=== PATIENT | male | born 1950 | race Caucasian/White ===

== ENCOUNTER 2019-04-29 15:08 | Observation (INO) | payer MEDICARE, OTHER ==
[2019-04-29 15:51] LABS: Anisocytosis Slight; Basophils % (A) 1 %; Eosinophils # (A) 0.1 k/uL (0-0.7); Eosinophils % (A) 2 %; Lymphocytes # (A) 1.9 k/uL (1.0-4.8); Lymphocytes % (A) 35 %; MCH 33.7 pg (25.0-35.0); MCHC 33.9 g/dL (31.0-37.0); MCV 99.5 fL (80.0-100.0); Macrocytosis Slight; Mean Platelet Volume 8.9; Monocytes # (A) 0.3 k/uL (0-1.0); Monocytes % (A) 5 %; Neutrophils % (A) 56 %; Platelet Count 193 k/uL (150-450); RBC 1.96 m/uL (4.30-5.90); RDW 18.2 % (11.5-15.5); WBC 5.5 k/uL (3.8-10.6)
[2019-04-29 15:55] LABS: HCT 19.5 % (39.0-53.0); HGB 6.6 gm/dL (13.0-17.5)
[2019-04-29] MEDS ORDERED: NALOXONE 0.4 MG/ML 1 ML VIAL IV PRN (15:55)
[2019-04-29] MEDS ORDERED: ACETAMINOPHEN TAB 325 MG TAB PO PRN (15:55)
--- NOTE | 2019-04-29 16:03 | ED ---
General Adult HPI - General Chief complaint: GI Bleed Stated complaint: GI Bleed Time Seen by Provider: 04/29/19 15:12 Source: patient, RN/MD, EMS, RN notes reviewed, old records reviewed Mode of arrival: EMS Limitations: no limitations - History of Present Illness Initial comments: 69-year-old male presents as transfer from outside hospital. Patient was diagnosed with GI bleed in acute blood loss anemia. He was transfused 1 unit and transferred to this institution for GI consultation. Patient complaining of dark stools and lightheadedness. Patient is currently on aspirin as well as Effient, with recent stent placement in the LAD. Patient had 3 total stents placed in the LAD on 02/16/2019. Patient denying symptoms at the time my evaluation. No abdominal pain. No nausea vomiting. No chest pain or dyspnea. Patient is comfortable with no complaints. - Related Data Home Medications Medication Instructions Recorded Confirmed Aspirin [[place] Aspirin EC] 81 mg PO BID 04/29/19 04/29/19 Atorvastatin Calcium [Lipitor] 10 mg PO DAILY 04/29/19 04/29/19 Lisinopril 20 mg PO DAILY 04/29/19 04/29/19 Metoprolol Tartrate [Lopressor] 12.5 mg PO BID 04/29/19 04/29/19 Prasugrel [Effient] 10 mg PO DAILY 04/29/19 04/29/19 Tamsulosin HCl [Flomax] 0.4 mg PO DAILY 04/29/19 04/29/19 Allergies Allergy/AdvReac Type Severity Reaction Status Date / Time Penicillins Allergy Unknown Verified 04/29/19 15:14 Childhood Review of Systems ROS Statement: Those systems with pertinent positive or pertinent negative responses have been documented in the HPI. ROS Other: All systems not noted in ROS Statement are negative. Past Medical History Past Medical History: Hypertension History of Any Multi-Drug Resistant Organisms: None Reported Past Surgical History: Heart Catheterization With Stent Past Psychological History: No Psychological Hx Reported Smoking Status: Current every day smoker Past Alcohol Use History: None Reported Past Drug Use History: None Reported General Exam Limitations: no limitations General appearance: alert, in no apparent distress Head exam: Present: atraumatic, normocephalic Eye exam: Present: normal appearance, PERRL ENT exam: Present: normal exam Neck exam: Present: normal inspection. Absent: tenderness Respiratory exam: Present: normal lung sounds bilaterally. Absent: respiratory distress, wheezes Cardiovascular Exam: Present: regular rate, normal rhythm GI/Abdominal exam: Present: soft. Absent: distended, tenderness, guarding Extremities exam: Present: normal inspection, normal capillary refill. Absent: pedal edema Neurological exam: Present: alert, oriented X3, CN II-XII intact. Absent: motor sensory deficit Skin exam: Present: warm, pallor Course Vital Signs 04/29/19 15:14 Temperature 98 F Pulse Rate 69 Respiratory 18 Rate Blood Pressure 123/67 O2 Sat by Pulse 99 Oximetry EKG Findings - EKG Comments: EKG Findings:: EKG: Sinus rhythm with occasional PVC, rate is 71, NV interval 182, QRS duration 104, QTC [address] segment elevation. Medical Decision Making - Medical Decision Making 69-year-old male with GI bleed suspected upper and melanotic stool. Recent heart catheterization approximately 2 months ago with stent placement. On aspirin and Effient. No current chest pain. Hemoglobin is repeated after 1 unit up trending. Patient is transfused another unit. Discussed case with cardiology,and gastroenterology both aware of patient and the emergency department. I discussed case with the pulmonary garbage truck helper Dr. Florez regarding placement in either ICU or telemetry, both of us feel at this time patient is stable for monitored bed, no ICU. Case discussed with the admitting physician Dr. Ames. Diagnosis: GI bleed, acute blood loss anemia, recent cardiac stents. - Lab Data Result diagrams: 04/29/19 15:30 Lab Results 04/29/19 04/29/19 Range/Units 15:30 15:30 WBC 5.5 (3.8-10.6) k/uL RBC 1.96 L (4.30-5.90) m/uL Hgb 6.6 L* (13.0-17.5) gm/dL Hct 19.5 L* (39.0-53.0) % MCV 99.5 (80.0-100.0) fL MCH 33.7 (25.0-35.0) pg MCHC 33.9 (31.0-37.0) g/dL RDW 18.2 H (11.5-15.5) % Plt Count 193 (150-450) k/uL Neutrophils % 56 % Lymphocytes % 35 % Monocytes % 5 % Eosinophils % 2 % Basophils % 1 % Neutrophils # 3.0 (1.3-7.7) k/uL Lymphocytes # 1.9 (1.0-4.8) k/uL Monocytes # 0.3 (0-1.0) k/uL Eosinophils # 0.1 (0-0.7) k/uL Basophils # 0.0 (0-0.2) k/uL Anisocytosis Slight Macrocytosis Slight Blood Type Recheck No Previous Record Bld Type Recheck Status CABO Indicated Spec Expiration Date 05/02/2019 - 9566 Critical Care Time Critical Care Time: Yes Total Critical Care Time: 35 Disposition Clinical Impression: Melena, History of heart artery stent, Acute blood loss anemia Disposition: ADMITTED IP TO THIS [facility] Condition: Stable Is patient prescribed a controlled substance at d/c from ED?: No Referrals: Shawna Calderón MD [Primary Care Provider] - 1-2 days Decision to Admit Reason: Admit from EC Decision Date: 04/29/19 Decision Time: 16:15
[2019-04-29] MEDS: SODIUM CHLORIDE 0.9% 1,000 ML IV SCH (16:15)
[2019-04-29 20:43] LABS: Glucose,Whole Blood 133 mg/dL (75-99)
[2019-04-29] MEDS: METOPROLOL TARTRATE 12.5 MG TAB PO SCH (21:11)
[2019-04-29] MEDS: PANTOPRAZOLE 40 MG/10 ML VIAL IVP SCH (21:14)
[2019-04-29 21:40] LABS: Anisocytosis Slight; Basophils % (A) 1 %; Eosinophils # (A) 0.1 k/uL (0-0.7); Eosinophils % (A) 1 %; HCT 21.2 % (39.0-53.0); HGB 7.3 gm/dL (13.0-17.5); Lymphocytes # (A) 2.2 k/uL (1.0-4.8); Lymphocytes % (A) 37 %; MCH 33.5 pg (25.0-35.0); MCHC 34.6 g/dL (31.0-37.0); MCV 97.1 fL (80.0-100.0); Macrocytosis Slight; Mean Platelet Volume 9.6; Monocytes # (A) 0.3 k/uL (0-1.0); Monocytes % (A) 4 %; Neutrophils # (A) 3.2 k/uL (1.3-7.7); Neutrophils % (A) 55 %; Platelet Count 178 k/uL (150-450); RBC 2.18 m/uL (4.30-5.90); RDW 19.5 % (11.5-15.5); WBC 5.9 k/uL (3.8-10.6)
[2019-04-30 05:55] LABS: Glucose,Whole Blood 111 mg/dL (75-99)
[2019-04-30 06:35] LABS: ALT 20 U/L (4-49); AST 23 U/L (17-59); African American GFR (CKD) >90 (>60 ml/min/1.73 sqM); Albumin 3.2 g/dL (3.5-5.0); Alkaline Phosphatase 43 U/L (38-126); Anion Gap 3 mmol/L; Blood Urea Nitrogen 12 mg/dL (9-20); Calcium 8.4 mg/dL (8.4-10.2); Carbon Dioxide 22 mmol/L (22-30); Chloride 115 mmol/L (98-107); Glucose 98 mg/dL (74-99); Non-African American GFR(CKD) >90 (>60 ml/min/1.73 sqM); Potassium 4.3 mmol/L (3.5-5.1); Sodium 140 mmol/L (137-145); Total Bilirubin 1.3 mg/dL (0.2-1.3); Total Protein 5.6 g/dL (6.3-8.2)
[2019-04-30 06:44] LABS: Anisocytosis Slight; Basophils % (A) 1 %; Eosinophils # (A) 0.1 k/uL (0-0.7); Eosinophils % (A) 3 %; HCT 22.6 % (39.0-53.0); HGB 7.8 gm/dL (13.0-17.5); Lymphocytes # (A) 1.6 k/uL (1.0-4.8); Lymphocytes % (A) 32 %; MCH 33.6 pg (25.0-35.0); MCHC 34.5 g/dL (31.0-37.0); MCV 97.3 fL (80.0-100.0); Macrocytosis Slight; Mean Platelet Volume 8.4; Monocytes # (A) 0.3 k/uL (0-1.0); Monocytes % (A) 6 %; Neutrophils # (A) 2.9 k/uL (1.3-7.7); Neutrophils % (A) 57 %; Platelet Count 209 k/uL (150-450); RBC 2.32 m/uL (4.30-5.90); RDW 19.6 % (11.5-15.5)
[2019-04-30] MEDS: METOPROLOL TARTRATE 12.5 MG TAB PO SCH ×2 (08:44→19:49)
[2019-04-30] MEDS: TAMSULOSIN 0.4 MG CAP.ER.24H PO SCH (08:44)
[2019-04-30] MEDS: PANTOPRAZOLE 40 MG/10 ML VIAL IVP SCH ×2 (08:44→19:47)
[2019-04-30] MEDS ORDERED: ATORVASTATIN 10 MG TAB PO SCH (09:00)
--- NOTE | 2019-04-30 09:04 | P.CRDCN ---
History of Present Illness Consult date: 04/30/19 Requesting physician: Victor Hugo E Kwaku Reason for Consult (text): History of recent stents Chief complaint: Weakness, falls, black stools History of present illness: This is a pleasant 69-year-old gentleman with history of borderline diabetes, hypertension, hyperlipidemia, colitis, nicotine dependence, coronary artery disease, the patient states he recently had 3 stents placed at a hospital in [place], exact details not currently available. Over the past 3 days the patient has been feeling very weak and tired, occasionally dizzy, then he noticed to have black stools, for this reason he went to [facility] for further evaluation and treatment. Patient states he's also been having some heartburn. Laboratory data from [facility] showed a white blood cell count of 5.4, hemoglobin 5.8, hematocrit 18, platelet 236, sodium 142, potassium 4.0, chloride 113, CO2 20, BUN 23, creatinine 0.7. Troponin 0.05, total bilirubin 0.3, lipase 397, AST 23, ALT 22, alk phos 36. Patient was given a fluid bolus on arrival to [facility], given IV Protonix, he was crossmatc hed for 2 units of packed red blood cells and transfused with one unit. His EKG showed normal sinus rhythm with no acute changes. Blood pressure on arrival there 116/60 with a heart rate of 70 and afebrile patient was then transferred to [facility] for further treatment. His EKG on arrival here showed a sinus bradycardia with no acute changes. Blood pressure 120/50, heart rate in the 70s, 98% on room air. Labs on arrival here, white blood cell count 5.5, hemoglobin 6.6, platelet count 193. This morning's labs, white blood cell count 5.0, hemoglobin 7.8, platelet count 209. Sodium 140, potassium 4.3, BUN 12, creatinine 0.7. Patient's home medications included Lopressor 12-1/2 mg twice a day, aspirin 81 mg twice a day, Flomax 0.4 mg daily, Effient 10 mg daily, lisinopril 20 mg daily, and Lipitor 10 mg daily. Past Medical History Past Medical History: Hypertension, Prostate Disorder History of Any Multi-Drug Resistant Organisms: None Reported Past Surgical History: Heart Catheterization With Stent Additional Past Surgical History / Comment(s): history of 3 stents. aprox 2 months ago. Past Psychological History: No Psychological Hx Reported Smoking Status: Current every day smoker Past Alcohol Use History: None Reported Past Drug Use History: None Reported Medications and Allergies Home Medications Medication Instructions Recorded Confirmed Type Aspirin [[place] Aspirin EC] 81 mg PO BID 04/29/19 04/29/19 History Atorvastatin Calcium [Lipitor] 10 mg PO DAILY 04/29/19 04/29/19 History Lisinopril 20 mg PO DAILY 04/29/19 04/29/19 History Metoprolol Tartrate [Lopressor] 12.5 mg PO BID 04/29/19 04/29/19 History Prasugrel [Effient] 10 mg PO DAILY 04/29/19 04/29/19 History Tamsulosin HCl [Flomax] 0.4 mg PO DAILY 04/29/19 04/29/19 History Allergies Allergy/AdvReac Type Severity Reaction Status Date / Time Penicillins Allergy Unknown Verified 04/29/19 15:14 Childhood Physical Exam Vitals: Vital Signs Temp Pulse Pulse Resp BP BP Pulse Ox 04/30/19 08:10 98.1 F 72 18 119/55 98 04/30/19 04:00 98.6 F 62 18 109/66 95 04/30/19 00:00 98.4 F 66 18 112/69 96 04/29/19 20:00 98.2 F 75 18 116/64 94 L 04/29/19 18:47 98.6 F 78 14 146/78 100 04/29/19 18:45 98.3 F 78 14 146/78 04/29/19 17:36 97.9 F 75 118 H 148/81 100 04/29/19 17:12 98.2 F 75 18 116/64 94 L 04/29/19 17:06 98.3 F 73 18 136/83 99 04/29/19 16:56 97.9 F 69 18 131/69 100 04/29/19 15:14 98 F 69 18 123/67 99 Intake and Output 04/29/19 04/30/19 04/30/19 22:59 06:59 14:59 Intake Total 620 Balance 620 Intake: Blood Product 620 Rc Pheresis 2 As3 Unit 310 [id number] Other: # Voids 2 1 Weight 81.647 kg 78.7 kg PHYSICAL EXAMINATION: GENERAL: 69-year-old gentleman in no acute distress at the time of my examination HEENT: Head is atraumatic, normocephalic. Pupils equal, round. Sclera anicteric. Conjunctiva are clear. Mucous membranes of the mouth are moist. Neck is supple. There is no elevated jugular venous pressure. No carotid bruit is heard. HEART EXAMINATION: Heart S1, S2 normal. No murmur or gallop heard. CHEST EXAMINATION: Lungs are clear to auscultation and precussion. No chest wall tenderness is noted on palpation or with deep breathing. ABDOMEN: Soft, nontender. Bowel sounds are heard. No organomegaly noted. EXTREMITIES: 2+ peripheral pulses with no evidence of peripheral edema and no calf tenderness noted. NEUROLOGIC patient is awake, alert and oriented 3 . . Results 04/30/19 05:48 04/30/19 05:48 Cardiac Enzymes 04/30/19 Range/Units 05:48 AST 23 (17-59) U/L CBC 04/29/19 04/29/19 04/30/19 Range/Units 15:30 21:22 05:48 WBC 5.5 5.9 5.0 (3.8-10.6) k/uL RBC 1.96 L 2.18 L 2.32 L (4.30-5.90) m/uL Hgb 6.6 L* 7.3 L 7.8 L (13.0-17.5) gm/dL Hct 19.5 L* 21.2 L 22.6 L (39.0-53.0) % Plt Count 193 178 209 (150-450) k/uL Comprehensive Metabolic Panel 04/30/19 Range/Units 05:48 Sodium 140 (137-145) mmol/L Potassium 4.3 (3.5-5.1) mmol/L Chloride 115 H (98-107) mmol/L Carbon Dioxide 22 (22-30) mmol/L BUN 12 (9-20) mg/dL Creatinine 0.73 (0.66-1.25) mg/dL Glucose 98 (74-99) mg/dL Calcium 8.4 (8.4-10.2) mg/dL AST 23 (17-59) U/L ALT 20 (4-49) U/L Alkaline Phosphatase 43 (38-126) U/L Total Protein 5.6 L (6.3-8.2) g/dL Albumin 3.2 L (3.5-5.0) g/dL Current Medications Generic Name Dose Route Start Last Admin Trade Name Freq PRN Reason Stop Dose Admin Acetaminophen 650 mg 04/29/19 15:55 Tylenol Tab PO Q4HR PRN Fever and/or Mild Pain Atorvastatin Calcium 10 mg 04/30/19 09:00 04/30/19 08:44 Lipitor PO 10 mg DAILY PRASANNA Administration Sodium Chloride 1,000 mls @ 50 mls/hr 04/29/19 15:30 04/29/19 16:15 Saline 0.9% IV 50 mls/hr .Q20H PRASANNA Administration Metoprolol Tartrate 12.5 mg 04/29/19 21:00 04/30/19 08:44 Lopressor PO 12.5 mg BID PRASANNA Administration Naloxone HCl 0.2 mg 04/29/19 15:55 Narcan IV Q2M PRN Opioid Reversal Pantoprazole Sodium 40 mg 04/29/19 21:00 04/30/19 08:44 Protonix IVP 40 mg BID PRASANNA Administration Tamsulosin HCl 0.4 mg 04/30/19 09:00 04/30/19 08:44 Flomax PO 0.4 mg DAILY PRASANNA Administration Intake and Output 04/29/19 04/30/19 04/30/19 22:59 06:59 14:59 Intake Total 620 Balance 620 Intake: Blood Product 620 Rc Pheresis 2 As3 Unit 310 [id number] Other: # Voids 2 1 Weight 81.647 kg 78.7 kg 04/30/19 05:48 04/30/19 05:48 EKG Interpretations (text) EKG shows a sinus bradycardia with no acute changes. Assessment and Plan Plan: Assessment and plan #1 GI bleed, patient was having black stools, hemoglobin at [facility] 5.8. On Effient 10 mg daily and baby aspirin twice a day #2 coronary artery disease with recent stenting, patient had 3 stents placed, in [place], we will obtain records, this was performed in February #3 hypertension #4 borderline diabetes #5 hyperlipidemia #6 nicotine dependence Plan We will obtain records from [place] on the patient's most recent cardiac procedure, we will also obtain an echocardiogram with Doppler study. We will resume the patient's Effient, as well as a baby aspirin daily, increase Lipitor to 80 mg daily, continue metoprolol. Await GI evaluation and recommendation. Further recommendations to follow. DNP note has been reviewed, I agree with a documented findings and plan of care. Patient was seen and examined.
[2019-04-30] MEDS ORDERED: PRASUGREL 10 MG TAB PO SCH (09:15)
[2019-04-30] MEDS ORDERED: ASPIRIN 81 MG PO SCH (09:15)
[2019-04-30 11:57] LABS: Glucose,Whole Blood 108 mg/dL (75-99)
--- NOTE | 2019-04-30 13:23 | ECHOF ---
Referral Reason:anemia MEASUREMENTS -------- HEIGHT: 177.8 cm WEIGHT: 78.5 kg BP: 119/55 RVIDd: 2.3 cm (< 3.3) IVSd: 1.3 cm (0.6 - 1.1) LVIDd: 4.5 cm (3.9 - 5.3) LVPWd: 1.2 cm (0.6 - 1.1) IVSs: 1.7 cm LVIDs: 3.0 cm LVPWs: 2.2 cm LA Diam: 3.9 cm (2.7 - 3.8) LAESV Index (A-L): 40.22 ml/m Ao Diam: 3.4 cm (2.0 - 3.7) AV Cusp: 2.2 cm (1.5 - 2.6) MV EXCURSION: 17.007 mm (> 18.000) MV EF SLOPE: 100 mm/s (70 - 150) EPSS: 0.7 cm MV E Gurinder: 1.07 m/s MV DecT: 159 ms MV A Gurinder: 0.67 m/s MV E/A Ratio: 1.58 RAP: 5.00 mmHg RVSP: 36.65 mmHg FINDINGS -------- Sinus rhythm. This was a technically adequate study. The left ventricular size is normal. There is mild concentric left ventricular hypertrophy. Overa ll left ventricular systolic function is low-normal with, an EF between 50 - 55 %. Apical inferior LV wall motion is hypokinetic. Apical septum LV wall motion is hypokinetic. The right ventricle is normal in size. LA is severely dilated >40 ml/m2 The right atrium is normal in size. Interatrial and interventricular septum intact. The aortic valve is trileaflet and appears structurally normal. Trace amount of aortic regurgitatio n. There is trace to mild mitral regurgitation. Mild tricuspid regurgitation present. There is mild pulmonary hypertension. The right ventricular systolic pressure, as measured by Doppler, is 36.65mmHg. Trace/mild (physiologic) pulmonic regurgitation. The aortic root size is normal. IVC Not well visulized. There is no pericardial effusion. CONCLUSIONS -------- 1. Sinus rhythm. 2. This was a technically adequate study. 3. The left ventricular size is normal. 4. There is mild concentric left ventricular hypertrophy. 5. Overall left ventricular systolic function is low-normal with, an EF between 50 - 55 %. 6. Apical inferior LV wall motion is hypokinetic. 7. Apical septum LV wall motion is hypokinetic. 8. The right ventricle is normal in size. 9. LA is severely dilated >40 ml/m2 10. The right atrium is normal in size. 11. Interatrial and interventricular septum intact. 12. The aortic valve is trileaflet and appears structurally normal. 13. Trace amount of aortic regurgitation. 14. There is trace to mild mitral regurgitation. 15. Mild tricuspid regurgitation present. 16. There is mild pulmonary hypertension. 17. The right ventricular systolic pressure, as measured by Doppler, is 36.65mmHg. 18. Trace/mild (physiologic) pulmonic regurgitation. 19. The aortic root size is normal. 20. IVC Not well visulized. 21. There is no pericardial effusion. VASCULAR TECHNICIAN: Stella Ireland RDCS
--- NOTE | 2019-04-30 15:46 | P.HPIM ---
History of Present Illness H&P Date: 04/30/19 Chief Complaint: Black stools/weakness 69-year-old gentleman with history of borderline diabetes, hypertension, hyperlipidemia, colitis, nicotine dependence, coronary artery disease, the patient states he recently had 3 stents placed at a hospital in [place], exact details not currently available. Over the past 3 days the patient has been feeling very weak and tired, occasionally dizzy, then he noticed to have black stools, for this reason he went to [facility] for further evaluation and treatment. Patient states he's also been having some heartburn. Laboratory data from [facility] showed a white blood cell count of 5.4, hemoglobin 5.8, hematocrit 18, platelet 236, sodium 142, potassium 4.0, chloride 113, CO2 20, BUN 23, creatinine 0.7. Troponin 0.05, total bilirubin 0.3, lipase 397, AST 23, ALT 22, alk phos 36. Patient was given a fluid bolus on arrival to [facility], given IV Protonix, he was crossmatched for 2 units of packed red blood cells and transfused with one unit. His EKG showed normal sinus rhythm with no acute changes. Patient was transferred to our facility for higher level of care; Blood pressure on arrival there 116/60 with a heart rate of 70 and afebrile. His EKG on arrival here showed a sinus bradycardia with no acute changes. Blood pressure 120/50, heart rate in the 70s, 98% on room air. Labs on arrival here, white blood cell count 5.5, hemoglobin 6.6, platelet count 193. This morning's labs, white blood cell count 5.0, hemoglobin 7.8, platelet count 209. Sodium 140, potassium 4.3, BUN 12, creatinine 0.7. Patient's home medications included Lopressor 12-1/2 mg twice a day, aspirin 81 mg twice a day, Flomax 0.4 mg daily, Effient 10 mg daily, lisinopril 20 mg daily, and Lipitor 10 mg daily. Review of Systems REVIEW OF SYSTEMS: CONSTITUTIONAL: No fever, no malaise, no fatigue. HEENT: No recent visual problems or hearing problems. Denied any sore throat. CARDIOVASCULAR: No chest pain, orthopnea, PND, no palpitations, no syncope. PULMONARY: No shortness of breath, no cough, no hemoptysis. GASTROINTESTINAL: Black tarry stools. NEUROLOGICAL: No headaches, no weakness, no numbness. HEMATOLOGICAL: Denies any bleeding or petechiae. GENITOURINARY: Denies any burning micturition, frequency, or urgency. MUSCULOSKELETAL/RHEUMATOLOGICAL: Denies any joint pain, swelling, or any muscle pain. ENDOCRINE: Denies any polyuria or polydipsia. The rest of the 14-point review of systems is negative. Past Medical History Past Medical History: Hypertension, Prostate Disorder History of Any Multi-Drug Resistant Organisms: None Reported Past Surgical History: Heart Catheterization With Stent Additional Past Surgical History / Comment(s): history of 3 stents. aprox 2 months ago. Past Psychological History: No Psychological Hx Reported Smoking Status: Current every day smoker Past Alcohol Use History: None Reported Past Drug Use History: None Reported Medications and Allergies Home Medications Medication Instructions Recorded Confirmed Type Aspirin [[place] Aspirin EC] 81 mg PO BID 04/29/19 04/29/19 History Atorvastatin Calcium [Lipitor] 10 mg PO DAILY 04/29/19 04/29/19 History Lisinopril 20 mg PO DAILY 04/29/19 04/29/19 History Metoprolol Tartrate [Lopressor] 12.5 mg PO BID 04/29/19 04/29/19 History Prasugrel [Effient] 10 mg PO DAILY 04/29/19 04/29/19 History Tamsulosin HCl [Flomax] 0.4 mg PO DAILY 04/29/19 04/29/19 History Allergies Allergy/AdvReac Type Severity Reaction Status Date / Time Penicillins Allergy Unknown Verified 04/29/19 15:14 Childhood Physical Exam Vitals: Vital Signs Temp Pulse Pulse Resp BP BP Pulse Ox 04/30/19 08:10 98.1 F 72 18 119/55 98 04/30/19 04:00 98.6 F 62 18 109/66 95 04/30/19 00:00 98.4 F 66 18 112/69 96 04/29/19 20:00 98.2 F 75 18 116/64 94 L 04/29/19 18:47 98.6 F 78 14 146/78 100 04/29/19 18:45 98.3 F 78 14 146/78 04/29/19 17:36 97.9 F 75 118 H 148/81 100 04/29/19 17:12 98.2 F 75 18 116/64 94 L 04/29/19 17:06 98.3 F 73 18 136/83 99 04/29/19 16:56 97.9 F 69 18 131/69 100 04/29/19 15:14 98 F 69 18 123/67 99 Intake and Output 04/29/19 04/30/19 04/30/19 22:59 06:59 14:59 Intake Total 620 Balance 620 Intake: Blood Product 620 Rc Pheresis 2 As3 Unit 310 [id number] Other: # Voids 2 1 Weight 81.647 kg 78.7 kg PHYSICAL EXAMINATION: GENERAL: The patient is alert and oriented x3, not in any acute distress. Well developed, well nourished. HEENT: Pupils are round and equally reacting to light. EOMI. No scleral icterus. No conjunctival pallor. Normocephalic, atraumatic. No pharyngeal erythema. No thyromegaly. CARDIOVASCULAR: S1 and S2 present. No murmurs, rubs, or gallops. PULMONARY: Chest is clear to auscultation, no wheezing or crackles. ABDOMEN: Soft, nontender, nondistended, normoactive bowel sounds. No palpable organomegaly. MUSCULOSKELETAL: No joint swelling or deformity. EXTREMITIES: No cyanosis, clubbing, or pedal edema. NEUROLOGICAL: Gross neurological examination did not reveal any focal deficits. SKIN: No rashes. Results CBC & Chem 7: 04/30/19 05:48 04/30/19 05:48 Labs: Abnormal Lab Results - Last 24 Hours (Table) 04/29/19 04/29/19 04/29/19 Range/Units 15:30 15:30 20:42 RBC 1.96 L (4.30-5.90) m/uL Hgb 6.6 L* (13.0-17.5) gm/dL Hct 19.5 L* (39.0-53.0) % RDW 18.2 H (11.5-15.5) % Chloride (98-107) mmol/L POC Glucose (mg/dL) 133 H (75-99) mg/dL Total Protein (6.3-8.2) g/dL Albumin (3.5-5.0) g/dL Crossmatch See Detail 04/29/19 04/30/19 04/30/19 Range/Units 21:22 05:48 05:48 RBC 2.18 L 2.32 L (4.30-5.90) m/uL Hgb 7.3 L 7.8 L (13.0-17.5) gm/dL Hct 21.2 L 22.6 L (39.0-53.0) % RDW 19.5 H 19.6 H (11.5-15.5) % Chloride 115 H (98-107) mmol/L POC Glucose (mg/dL) (75-99) mg/dL Total Protein 5.6 L (6.3-8.2) g/dL Albumin 3.2 L (3.5-5.0) g/dL Crossmatch 04/30/19 04/30/19 Range/Units 05:54 11:54 RBC (4.30-5.90) m/uL Hgb (13.0-17.5) gm/dL Hct (39.0-53.0) % RDW (11.5-15.5) % Chloride (98-107) mmol/L POC Glucose (mg/dL) 111 H 108 H (75-99) mg/dL Total Protein (6.3-8.2) g/dL Albumin (3.5-5.0) g/dL Crossmatch Thrombosis Risk Factor Assmnt - Choose All That Apply Other Risk Factors: Yes Each Risk Factor Represents 2 Points: Age 61-74 years Other congenital or acquired thrombophilia - If yes, enter type in comment: No Thrombosis Risk Factor Assessment Total Risk Factor Score: 2 Thrombosis Risk Factor Assessment Level: Low Risk Assessment and Plan Assessment: 1. GI bleed; monitor H&H closely; IV Protonix 40 mg daily; IV fluids; monitor CBC closely; GI to see patient 2. Acute blood loss anemia; we will monitor H&H closely; type crossmatch and transfuse if hemoglobin is less than 7.0; await GI recommendations; cardiology recommended to continue with Effient 10 mg take and baby aspirin twice a day 3. CAD with recent stenting 3; cardiology is following and recommending records from Hospital in [place] prior to any further evaluation; cardiology recommending to continue with Effient and aspirin 4. Hypertension; stable on home dose of metoprolol 12.5 mg twice a day 5. Borderline diabetes mellitus; monitor Accu-Cheks every before meals and at bedtime with insulin sliding scale; 6. Hyperlipidemia; Lipitor 10 mg by mouth daily at bedtime 7. DVT prophylaxis; systemic anticoagulation CODE STATUS; full code
[2019-04-30 17:21] LABS: Glucose,Whole Blood 107 mg/dL (75-99)
[2019-04-30] MEDS: SODIUM CHLORIDE 0.9% 1,000 ML IV SCH ×2 (17:37→17:41)
--- NOTE | 2019-04-30 18:55 | CONS ---
CONSULTATION DATE OF DICTATION: 04/30/2019 REASON FOR CONSULTATION: Acute GI bleed. HISTORY OF PRESENT ILLNESS: The patient is a 69-year-old pleasant white male who was admitted to the hospital because of black tarry stools for the last 2 days' duration. He has also been feeling weak, tired, occasional dizziness for the last 3 days' duration. He went to [facility], where he was noted to have a hemoglobin of 5.8 g/dL and slightly elevated BUN at 23. He was given a unit of blood transfusion and was transferred to [facility] for further evaluation. Since being over here, his hemoglobin dropped to 6.5, requiring another unit of blood transfusion. He is feeling much better today. He denies any abdominal pain. No nausea, vomiting. He did have some cramping lower abdominal pain yesterday. He has a prior history of peptic ulcer disease approximately 20 years ago. He denies any recent NSAID use. PAST MEDICAL HISTORY: His past medical history is significant for hypertension, diabetes mellitus, hyperlipidemia, coronary artery disease, status post stent placement in [place] in February of this year and has been on Effient. MEDICATIONS AT HOME: 1. Aspirin. 2. Lipitor. 3. Lisinopril. 4. Metoprolol. 5. Effient. 6. Tamsulosin. ALLERGIES: PENICILLIN. SOCIAL HISTORY: Chronic smoker. No alcohol use. FAMILY HISTORY: Unremarkable. REVIEW OF SYSTEMS: CARDIOPULMONARY: No chest pain or shortness of breath. GENITOURINARY: No dysuria or hematuria. MUSCULOSKELETAL: Unremarkable. SKIN: Unremarkable. ENDOCRINE: Unremarkable. PSYCHIATRIC: Unremarkable. NEUROLOGY: Unremarkable. ENT/VISION: Unremarkable. CONSTITUTIONAL: No recent weight loss. No fever, chills, night sweats. PHYSICAL EXAMINATION: Blood pressure is 123/58, pulse rate 53, temperature 98. HEENT examination unremarkable. Conjunctivae pale. Sclerae anicteric. Oral cavity no lesions. NECK: No JVD or lymph node enlargement. CHEST: Clear to auscultation. HEART: Regular rate and rhythm. ABDOMEN: Soft. Non-tender, non-distended. Bowel sounds are positive. No organomegaly. EXTREMITIES: No pedal edema. SKIN: No rashes. NEUROLOGIC: Alert and oriented x3. No focal deficits. LABS: WBC 5, hemoglobin 6.6, platelets normal. After 2 units, hemoglobin is 7.8. BUN and creatinine today are normal. Basic metabolic panel is within normal limits. IMPRESSION: 1. Black tarry stools of 3 days' duration in this patient who presented with severe symptomatic anemia and a hemoglobin of 5.5 requiring 2 units of blood transfusion. No prior history of peptic ulcer disease or recent NSAID use. He underwent cardiac catheterization with stent placement 2 months ago in [place] and since then has been on aspirin and Effient, which is currently on hold. Most likely we are dealing with an upper GI source of bleeding. 2. Coronary artery disease, status post stent placement 2 months ago, on aspirin and Effient, which is currently on hold. 3. History of diabetes mellitus and hypertension. RECOMMENDATIONS: 1. Clear liquid diet. 2. IV Protonix 40 mg q.12 hours. 3. CBC on a daily basis. 4. Will proceed with an upper endoscopy tomorrow. Discussed with the patient risks, benefits and complications of the procedure, and he is agreeable to it. Thank you for this consultation. MIL / JUJUN: [id number] /
[2019-04-30 21:04] LABS: Glucose,Whole Blood 100 mg/dL (75-99)
[2019-05-01 06:18] LABS: Anisocytosis Slight; Basophils # (A) 0.1 k/uL (0-0.2); Basophils % (A) 1 %; Eosinophils # (A) 0.1 k/uL (0-0.7); Eosinophils % (A) 2 %; HCT 25.8 % (39.0-53.0); HGB 8.5 gm/dL (13.0-17.5); Lymphocytes # (A) 1.7 k/uL (1.0-4.8); Lymphocytes % (A) 30 %; MCH 32.6 pg (25.0-35.0); MCHC 32.8 g/dL (31.0-37.0); MCV 99.3 fL (80.0-100.0); Macrocytosis Slight; Mean Platelet Volume 8.4; Monocytes # (A) 0.4 k/uL (0-1.0); Monocytes % (A) 7 %; Neutrophils # (A) 3.2 k/uL (1.3-7.7); Neutrophils % (A) 58 %; Platelet Count 221 k/uL (150-450); RDW 19.1 % (11.5-15.5); WBC 5.5 k/uL (3.8-10.6)
[2019-05-01 06:23] LABS: Glucose,Whole Blood 112 mg/dL (75-99)
[2019-05-01 06:33] LABS: African American GFR (CKD) >90 (>60 ml/min/1.73 sqM); Anion Gap 7 mmol/L; Blood Urea Nitrogen 9 mg/dL (9-20); Calcium 8.3 mg/dL (8.4-10.2); Carbon Dioxide 21 mmol/L (22-30); Chloride 110 mmol/L (98-107); Glucose 92 mg/dL (74-99); Non-African American GFR(CKD) >90 (>60 ml/min/1.73 sqM); Potassium 4.7 mmol/L (3.5-5.1); Sodium 138 mmol/L (137-145)
[2019-05-01] MEDS ORDERED: PROPOFOL 10 MG/ML 20 ML VIAL IV ONE (06:52)
[2019-05-01] MEDS ORDERED: LIDOCAINE 1% INJ 10MG/ML (20 ML MDV) ONE (06:52)
[2019-05-01] MEDS ORDERED: IV FLUID CONTINUATION 1,000 ML IV ONE (07:06)
--- NOTE | 2019-05-01 07:10 | P.PCN ---
Date of Procedure: 05/01/19 Procedure(s) Performed: BRIEF HISTORY: Patient is a 69-year-old, pleasant, White male, admitted hospital with severe symptomatic anemia and hemoglobin of 5.6 g/dL. he received 2 units of transfusion so far. He was having some Black tarry stools for the last 3 days' duration. He is hence scheduled for an upper endoscopy to evaluate further. Hemoglobin today is 8.5 g/dL.. PROCEDURE PERFORMED: Esophagogastroduodenoscopywith biopsy. PREOPERATIVE DIAGNOSIS: Melena of 2 days' duration and severe symptomatic anemia. IV sedation per anesthesia. PROCEDURE: After informed consent was obtained, the patient was brought into the endoscopy unit. IV sedation was administered by Anesthesia under continuous monitoring. Initially the Olympus GIF-140 video endoscope was inserted into the mouth. Esophagus intubated without any difficulty. It was gradually advanced into the stomach and duodenum and carefully examined. The bulb had moderate duodenitisand the second part of the duodenum appeared normal. The scope at this time was withdrawn to the stomach, adequately insufflated with air, and upon careful examination, mucosa of the antrum,had multiple scattered erosions and biopsies were done from this area. The body, cardia and the fundus appeared normal. The scope was then withdrawn into the esophagus. The GE junction was located at 39 cm from the incisors. The esophagus appeared normal. There were no erosions or ulcerations seen and the patient tolerated the procedure well. IMPRESSION: 1. Antral erosive gastritis. 2. Duodenitis. RECOMMENDATIONS: The findings of this examination were discussed with the patient. At this time will continue with Protonix 40 mg daily. Start him on clear liquid diet. I will discuss with him about colonoscopy tomorrow or an outpatient basis to evaluate the anemia.
[2019-05-01] MEDS: TAMSULOSIN 0.4 MG CAP.ER.24H PO SCH (09:16)
[2019-05-01] MEDS: PANTOPRAZOLE 40 MG/10 ML VIAL IVP SCH ×2 (09:16→20:13)
[2019-05-01] MEDS: ATORVASTATIN 80 MG TAB PO SCH (09:16)
[2019-05-01] MEDS: METOPROLOL TARTRATE 12.5 MG TAB PO SCH ×2 (09:16→20:11)
[2019-05-01 12:18] LABS: Glucose,Whole Blood 106 mg/dL (75-99)
--- NOTE | 2019-05-01 12:30 | P.PN ---
Subjective Progress Note Date: 05/01/19 This is a pleasant 69-year-old gentleman with history of borderline diabetes, hypertension, hyperlipidemia, colitis, nicotine dependence, coronary artery disease, the patient states he recently had 3 stents placed at a hospital in [place], exact details not currently available. Over the past 3 days the patient has been feeling very weak and tired, occasionally dizzy, then he noticed to have black stools, for this reason he went to [facility] for further evaluation and treatment. Patient states he's also been having some heartburn. Laboratory data from [facility] showed a white blood cell count of 5.4, hemoglobin 5.8, hematocrit 18, platelet 236, sodium 142, potassium 4.0, chloride 113, CO2 20, BUN 23, creatinine 0.7. Troponin 0.05, total bilirubin 0.3, lipase 397, AST 23, ALT 22, alk phos 36. Patient was given a fluid bolus on arrival to [facility], given IV Protonix, he was crossmatched for 2 units of packed red blood cells and transfused with one unit. His EKG showed normal sinus rhythm with no acute changes. Blood pressure on arrival there 116/60 with a heart rate of 70 and afebrile patient was then transferred to [facility] for further treatment. His EKG on arrival here showed a sinus bradycardia with no acute changes. Blood pressure 120/50, heart rate in the 70s, 98% on room air. Labs on arrival here, white blood cell count 5.5, hemoglobin 6.6, platelet count 193. This morning's labs, white blood cell count 5.0, hemoglobin 7.8, platelet count 209. Sodium 140, potassium 4.3, BUN 12, creatinine 0.7. Patient's home medications included Lopressor 12-1/2 mg twice a day, aspirin 81 mg twice a day, Flomax 0.4 mg daily, Effient 10 mg daily, lisinopril 20 mg daily, and Lipitor 10 mg daily. 05/01/2019 Patient seen and examined this morning, underwent an EGD today which revealed some antral erosive gastritis and duodenitis. Anticipating tomorrow that the patient will undergo a colonoscopy. Hemodynamically he is stable. Denies any chest discomfort and his breathing is stable. We will have the nurse check with Dr. K Tumma regarding resuming antiplatelets. If it is okay with GI we will start the patient on Plavix 75 mg daily along with a baby aspirin. The hemoglobin today is 8.5 Objective - Vital Signs Vital signs: Vital Signs Temp 98.0 F 05/01/19 08:00 Pulse 66 05/01/19 08:00 Resp 16 05/01/19 02:47 BP 128/60 05/01/19 08:00 Pulse Ox 100 05/01/19 08:00 Intake & Output 04/30/19 05/01/19 05/01/19 18:59 06:59 18:59 Intake Total 350 370 300 Output Total 300 Balance 350 70 300 Weight 79.4 kg Intake: IV 200 Intake, IV Titration 350 250 100 Amount Sodium Chloride 0.9% 1, 350 250 100 000 ml @ 50 mls/hr IV . Q20H [facility] Rx#:[id number] Oral 120 Output: Urine 300 Other: # Voids 1 - Exam PHYSICAL EXAMINATION: GENERAL: 69-year-old gentleman in no acute distress at the time of my examination HEENT: Head is atraumatic, normocephalic. Pupils equal, round. Sclera anicteric. Conjunctiva are clear. Mucous membranes of the mouth are moist. Neck is supple. There is no elevated jugular venous pressure. No carotid bruit is heard. HEART EXAMINATION: Heart S1, S2 normal. No murmur or gallop heard. CHEST EXAMINATION: Lungs are clear to auscultation and precussion. No chest wall tenderness is noted on palpation or with deep breathing. ABDOMEN: Soft, nontender. Bowel sounds are heard. No organomegaly noted. EXTREMITIES: 2+ peripheral pulses with no evidence of peripheral edema and no calf tenderness noted. NEUROLOGIC patient is awake, alert and oriented 3 . . - Labs CBC & Chem 7: 05/01/19 05:28 05/01/19 05:28 Labs: Abnormal Lab Results - Last 24 Hours (Table) 04/30/19 04/30/19 05/01/19 Range/Units 16:59 21:03 05:28 RBC 2.60 L (4.30-5.90) m/uL Hgb 8.5 L (13.0-17.5) gm/dL Hct 25.8 L (39.0-53.0) % RDW 19.1 H (11.5-15.5) % Chloride (98-107) mmol/L Carbon Dioxide (22-30) mmol/L POC Glucose (mg/dL) 107 H 100 H (75-99) mg/dL Calcium (8.4-10.2) mg/dL 05/01/19 05/01/19 05/01/19 Range/Units 05:28 06:22 11:58 RBC (4.30-5.90) m/uL Hgb (13.0-17.5) gm/dL Hct (39.0-53.0) % RDW (11.5-15.5) % Chloride 110 H (98-107) mmol/L Carbon Dioxide 21 L (22-30) mmol/L POC Glucose (mg/dL) 112 H 106 H (75-99) mg/dL Calcium 8.3 L (8.4-10.2) mg/dL Assessment and Plan Plan: Assessment and plan #1 GI bleed, patient was having black stools, hemoglobin at [facility] 5.8. On Effient 10 mg daily and baby aspirin twice a day #2 coronary artery disease with recent stenting, patient had 3 stents placed, in [place], we will obtain records, this was performed in February #3 hypertension #4 borderline diabetes #5 hyperlipidemia #6 nicotine dependence Plan from cardiology's perspective, we would recommend the patient be on a baby aspirin as well as 75 mg of Plavix daily when it is okay with GI service. DNP note has been reviewed, I agree with a documented findings and plan of care. Patient was seen and examined.
--- NOTE | 2019-05-01 15:36 | P.PN ---
Subjective Progress Note Date: 05/01/19 Principal diagnosis: GI bleed; status post EGD Acute blood loss anemia CAD with recent stenting 05/01/2019 Patient is seen and evaluated in room at bedside; denies any complaint of abdominal pain, hemoptysis or hematemesis; denies any dark stools Vital signs are reviewed and remained stable; lab review shows hemoglobin stable at 8.5 improved from 7.8 yesterday; patient was seen by GI and underwent EGD showing erosive gastritis/duodenitis; patient is recommended to continue on IV Protonix and possible colonoscopy on Friday; cardiology is consulted to review anticoagulation therapy; patient had recent cath with stenting done and is recommended to her antiplatelet therapy; cardiology recommending to keep patient on aspirin and Plavix once patient is cleared by GI Objective - Vital Signs Vital signs: Vital Signs Temp 98.0 F 05/01/19 08:00 Pulse 66 05/01/19 08:00 Resp 16 05/01/19 02:47 BP 128/60 05/01/19 08:00 Pulse Ox 100 05/01/19 08:00 Intake & Output 04/30/19 05/01/19 05/01/19 18:59 06:59 18:59 Intake Total 350 370 300 Output Total 300 Balance 350 70 300 Weight 79.4 kg Intake: IV 200 Intake, IV Titration 350 250 100 Amount Sodium Chloride 0.9% 1, 350 250 100 000 ml @ 50 mls/hr IV . Q20H [facility] Rx#:[id number] Oral 120 Output: Urine 300 Other: # Voids 1 - Exam GENERAL: The patient is alert and oriented x3, not in any acute distress. Well developed, well nourished. HEENT: Pupils are round and equally reacting to light. EOMI. No scleral icterus. No conjunctival pallor. Normocephalic, atraumatic. No pharyngeal erythema. No thyromegaly. CARDIOVASCULAR: S1 and S2 present. No murmurs, rubs, or gallops. PULMONARY: Chest is clear to auscultation, no wheezing or crackles. ABDOMEN: Soft, nontender, nondistended, normoactive bowel sounds. No palpable organomegaly. MUSCULOSKELETAL: No joint swelling or deformity. EXTREMITIES: No cyanosis, clubbing, or pedal edema. NEUROLOGICAL: Gross neurological examination did not reveal any focal deficits. SKIN: No rashes. - Labs CBC & Chem 7: 05/01/19 05:28 05/01/19 05:28 Labs: Abnormal Lab Results - Last 24 Hours (Table) 04/30/19 04/30/19 05/01/19 Range/Units 16:59 21:03 05:28 RBC 2.60 L (4.30-5.90) m/uL Hgb 8.5 L (13.0-17.5) gm/dL Hct 25.8 L (39.0-53.0) % RDW 19.1 H (11.5-15.5) % Chloride (98-107) mmol/L Carbon Dioxide (22-30) mmol/L POC Glucose (mg/dL) 107 H 100 H (75-99) mg/dL Calcium (8.4-10.2) mg/dL 05/01/19 05/01/19 05/01/19 Range/Units 05:28 06:22 11:58 RBC (4.30-5.90) m/uL Hgb (13.0-17.5) gm/dL Hct (39.0-53.0) % RDW (11.5-15.5) % Chloride 110 H (98-107) mmol/L Carbon Dioxide 21 L (22-30) mmol/L POC Glucose (mg/dL) 112 H 106 H (75-99) mg/dL Calcium 8.3 L (8.4-10.2) mg/dL Assessment and Plan Assessment: 1. GI bleed; monitor H&H closely; IV Protonix 40 mg daily; IV fluids; monitor CBC closely; GI to see patient 2. Acute blood loss anemia; we will monitor H&H closely; type crossmatch and t ransfuse if hemoglobin is less than 7.0; await GI recommendations; cardiology recommended to continue with Effient 10 mg take and baby aspirin twice a day 3. CAD with recent stenting 3; cardiology is following and recommending records from Hospital in [place] prior to any further evaluation; cardiology recommending to continue with Effient and aspirin 4. Hypertension; stable on home dose of metoprolol 12.5 mg twice a day 5. Borderline diabetes mellitus; monitor Accu-Cheks every before meals and at bedtime with insulin sliding scale; 6. Hyperlipidemia; Lipitor 10 mg by mouth daily at bedtime 7. DVT prophylaxis; systemic anticoagulation CODE STATUS; full code
[2019-05-01] MEDS ORDERED: PEG 3350-NA SULF,BICARB,CL/KCL 4,000 ML BOTTLE PO ONE (17:00)
[2019-05-01 18:24] VITALS: RESP 18
[2019-05-01 21:15] LABS: Glucose,Whole Blood 89 mg/dL (75-99)
[2019-05-02] MEDS: SODIUM CHLORIDE 0.9% 1,000 ML IV SCH (04:50)
[2019-05-02 06:15] LABS: Glucose,Whole Blood 107 mg/dL (75-99)
[2019-05-02] MEDS ORDERED: PROPOFOL 10 MG/ML 20 ML VIAL IV ONE (07:58)
[2019-05-02] MEDS ORDERED: LIDOCAINE 1% INJ 10MG/ML (20 ML MDV) ONE (07:58)
[2019-05-02] MEDS ORDERED: LACTATED RINGERS 1,000 ML IV ONE (08:06)
--- NOTE | 2019-05-02 08:26 | P.PCN ---
Date of Procedure: 05/02/19 Procedure(s) Performed: BRIEF HISTORY: Patient is a 69-year-old pleasant white male admitted to the hospital with severe symptomatic anemia and hemoglobin of 5.4 g/dL requiring blood transfusion. He had an upper endoscopy yesterday that showed erosive gastritis. He is hence scheduled for an colonoscopy to evaluate further. PROCEDURE PERFORMED: Colonoscopy with biopsy. PREOPERATIVE DIAGNOSIS: Severe symptomatic anemia/upper endoscopy yesterday revealed erosive esophagitis. IV sedation per Anesthesia. PROCEDURE: After informed consent was obtained, the patient, was brought into the endoscopy unit. IV sedation was administered by Anesthesia under continuous monitoring. Digital rectal examination was normal. Initially the Olympus CF-160 flexible video colonoscope was then inserted in the rectum, gradually advanced into the cecum without any difficulty. Careful examination was performed as the scope was gradually being withdrawn. Ileocecal valve and the appendiceal orifice were visualized and appeared normal. Prep was excellent. Ileocecal valve appeared inflamed with mucosal erythema and superficial erosions status post multiple biopsies to rule out inflammatory bowel disease. Mucosa of the cecum, ascending colon, transverse colon, descending colon, sigmoid colon, and rectum appeared normal. Scattered sigmoidal reticulosis seen. Retroflexion was performed in the rectum and no lesions were seen. The patient tolerated the procedure well. IMPRESSION: Inflamed ileocecal valve with erosions and erythema status post biopsy to rule out inflammatory bowel disease Scattered sigmoid diverticulosis No evidence of colorectal neoplasia RECOMMENDATIONS: Findings of this examination were discussed with the patient. He was advised to with the biopsy result. Diet will be advanced as tolerated. Aspirin and eefient can be resumed today.
[2019-05-02] MEDS: METOPROLOL TARTRATE 12.5 MG TAB PO SCH (08:46)
[2019-05-02] MEDS: PANTOPRAZOLE 40 MG/10 ML VIAL IVP SCH (08:46)
[2019-05-02] MEDS: ATORVASTATIN 80 MG TAB PO SCH (08:46)
[2019-05-02] MEDS: TAMSULOSIN 0.4 MG CAP.ER.24H PO SCH (08:46)
[2019-05-02 11:40] LABS: Glucose,Whole Blood 131 mg/dL (75-99)
[2019-05-02] MEDS ORDERED: ASPIRIN 81 MG PO SCH (11:45)
[2019-05-02] MEDS ORDERED: CLOPIDOGREL 75 MG TAB PO SCH (11:45)
--- NOTE | 2019-05-02 12:02 | P.PN ---
Subjective Progress Note Date: 05/02/19 This is a pleasant 69-year-old gentleman with history of borderline diabetes, hypertension, hyperlipidemia, colitis, nicotine dependence, coronary artery disease, the patient states he recently had 3 stents placed at a hospital in [place], exact details not currently available. Over the past 3 days the patient has been feeling very weak and tired, occasionally dizzy, then he noticed to have black stools, for this reason he went to [facility] for further evaluation and treatment. Patient states he's also been having some heartburn. Laboratory data from [facility] showed a white blood cell count of 5.4, hemoglobin 5.8, hematocrit 18, platelet 236, sodium 142, potassium 4.0, chloride 113, CO2 20, BUN 23, creatinine 0.7. Troponin 0.05, total bilirubin 0.3, lipase 397, AST 23, ALT 22, alk phos 36. Patient was given a fluid bolus on arrival to [facility], given IV Protonix, he was crossmatched for 2 units of packed red blood cells and transfused with one unit. His EKG showed normal sinus rhythm with no acute changes. Blood pressure on arrival there 116/60 with a heart rate of 70 and afebrile patient was then transferred to [facility] for further treatment. His EKG on arrival here showed a sinus bradycardia with no acute changes. Blood pressure 120/50, heart rate in the 70s, 98% on room air. Labs on arrival here, white blood cell count 5.5, hemoglobin 6.6, platelet count 193. This morning's labs, white blood cell count 5.0, hemoglobin 7.8, platelet count 209. Sodium 140, potassium 4.3, BUN 12, creatinine 0.7. Patient's home medications included Lopressor 12-1/2 mg twice a day, aspirin 81 mg twice a day, Flomax 0.4 mg daily, Effient 10 mg daily, lisinopril 20 mg daily, and Lipitor 10 mg daily. 05/01/2019 Patient seen and examined this morning, underwent an EGD today which revealed some antral erosive gastritis and duodenitis. Anticipating tomorrow that the patient will undergo a colonoscopy. Hemodynamically he is stable. Denies any chest discomfort and his breathing is stable. We will have the nurse check with Dr. K Tumma regarding resuming antiplatelets. If it is okay with GI we will start the patient on Plavix 75 mg daily along with a baby aspirin. The hemoglobin today is 8.5 05/02/2019 Patient was seen and examined this morning, underwent a colonoscopy today which revealed inflamed ileocecal valve with erosions and erythema status post biopsy to rule out inflammatory bowel disease. Scattered sigmoid diverticulosis with no evidence of colorectal neoplasia. Patient was cleared to be resumed on his dual antiplatelet therapy. Hemodynamically he is stable, no chest pain, no difficulty in breathing. Objective - Vital Signs Vital signs: Vital Signs Temp 97.8 F 05/02/19 08:40 Pulse 64 05/02/19 08:40 Resp 18 05/02/19 08:40 BP 117/64 05/02/19 08:40 Pulse Ox 99 05/02/19 08:40 Intake & Output 05/01/19 05/02/19 05/02/19 18:59 06:59 18:59 Intake Total 900 300 Balance 900 300 Weight 80.4 kg Intake: IV 200 300 Intake, IV Titration 100 Amount Sodium Chloride 0.9% 1, 100 000 ml @ 50 mls/hr IV . Q20H [facility] Rx#:[id number] Oral 600 Other: # Voids 2 1 # Bowel Movements 3 - Exam PHYSICAL EXAMINATION: GENERAL: 69-year-old gentleman in no acute distress at the time of my examination HEENT: Head is atraumatic, normocephalic. Pupils equal, round. Sclera anicteric. Conjunctiva are clear. Mucous membranes of the mouth are moist. Neck is supple. There is no elevated jugular venous pressure. No carotid bruit is heard. HEART EXAMINATION: Heart S1, S2 normal. No murmur or gallop heard. CHEST EXAMINATION: Lungs are clear to auscultation and precussion. No chest wall tenderness is noted on palpation or with deep breathing. ABDOMEN: Soft, nontender. Bowel sounds are heard. No organomegaly noted. EXTREMITIES: 2+ peripheral pulses with no evidence of peripheral edema and no calf tenderness noted. NEUROLOGIC patient is awake, alert and oriented 3 . . - Labs CBC & Chem 7: 05/01/19 05:28 05/01/19 05:28 Labs: Abnormal Lab Results - Last 24 Hours (Table) 12/14/19 12/15/19 12/15/19 Range/Units 11:58 06:14 11:39 POC Glucose (mg/dL) 106 H 107 H 131 H (75-99) mg/dL Assessment and Plan Plan: Assessment and plan #1 GI bleed, patient was having black stools, hemoglobin at [facility] 5.8. On Effient 10 mg daily and baby aspirin twice a day #2 coronary artery disease with recent stenting, patient had 3 stents placed, in [place], we will obtain records, this was performed in February #3 hypertension #4 borderline diabetes #5 hyperlipidemia #6 nicotine dependence Plan from cardiology's perspective, we would recommend the patient be on a baby aspirin as well as 75 mg of Plavix daily .he may be able to be discharged home from cardiology's perspective. DNP note has been reviewed, I agree with a documented findings and plan of care. Patient was seen and examined.
[2019-05-02 12:20] VITALS: TEMP 97.7
[2019-05-02 16:06] VITALS: BP 121/62; PULSE 68
--- NOTE | 2019-05-02 18:15 | P.DS ---
Providers Date of admission: 04/29/19 15:55 Expected date of discharge: 05/02/19 Attending physician: Victor Hugo Ames MD Consults: 04/29/19 15:55 Consult Physician Urgent Consulting Provider: Nadine Gomez Consult Reason/Comments: GI bleed, recent stents placed in LAD Do you want consulting provider notified?: Already Contacted Consult Physician Urgent Consulting Provider: Charlie Shine Consult Reason/Comments: GI Bleed Do you want consulting provider notified?: Already Contacted Primary care physician: [facility] Course: 69-year-old gentleman with history of borderline diabetes, hypertension, hyperlipidemia, colitis, nicotine dependence, coronary artery disease, the patient states he recently had 3 stents placed at a hospital in [place], exact details not currently available. Over the past 3 days the patient has been feeling very weak and tired, occasionally dizzy, then he noticed to have black stools, for this reason he went to [facility] for further evaluation and treatment. Patient states he's also been having some heartburn. Laboratory data from [facility] showed a white blood cell count of 5.4, hemoglobin 5.8, hematocrit 18, platelet 236, sodium 142, potassium 4.0, chloride 113, CO2 20, BUN 23, creatinine 0.7. Troponin 0.05, total bilirubin 0.3, lipase 397, AST 23, ALT 22, alk phos 36. Patient was given a fluid bolus on arrival to [facility], given IV Protonix, he was crossmatched for 2 units of packed red blood cells and transfused with one unit. His EKG showed normal sinus rhythm with no acute changes. Blood pressure on arrival there 116/60 with a heart rate of 70 and afebrile patient was then transferred to [facility] for further treatment. His EKG on arrival here showed a sinus bradycardia with no acute changes. Blood pressure 120/50, heart rate in the 70s, 98% on room air. Labs on arrival here, white blood cell count 5.5, hemoglobin 6.6, platelet count 193. This morning's labs, white blood cell count 5.0, hemoglobin 7.8, platelet count 209. Sodium 140, potassium 4.3, BUN 12, creatinine 0.7. Patient's home medications included Lopressor 12-1/2 mg twice a day, aspirin 81 mg twice a day, Flomax 0.4 mg daily, Effient 10 mg daily, lisinopril 20 mg daily, and Lipitor 10 mg daily. 05/01/2019 Patient seen and examined this morning, underwent an EGD today which revealed some antral erosive gastritis and duodenitis. Anticipating tomorrow that the patient will undergo a colonoscopy. Hemodynamically he is stable. Denies any chest discomfort and his breathing is stable. We will have the nurse check with Dr. Lorena Mckeon regarding resuming antiplatelets. If it is okay with GI we will start the patient on Plavix 75 mg daily along with a baby aspirin. The hemog lobin today is 8.5 05/02/2019 Patient was seen and examined this morning, underwent a colonoscopy today which revealed inflamed ileocecal valve with erosions and erythema status post biopsy to rule out inflammatory bowel disease. Scattered sigmoid diverticulosis with no evidence of colorectal neoplasia. Patient was cleared to be resumed on his dual antiplatelet therapy. Hemodynamically he is stable, no chest pain, no difficulty in breathing. patient has been cleared by GI and cardiology for discharge Patient Condition at Discharge: Stable Plan - Discharge Summary Discharge Rx Participant: No New Discharge Prescriptions: New Clopidogrel [Plavix] 75 mg PO DAILY #30 tab Continue Tamsulosin HCl [Flomax] 0.4 mg PO DAILY Metoprolol Tartrate [Lopressor] 12.5 mg PO BID Lisinopril 20 mg PO DAILY Atorvastatin Calcium [Lipitor] 10 mg PO DAILY Aspirin [Gerster Aspirin EC] 81 mg PO BID Discontinued Prasugrel [Effient] 10 mg PO DAILY Discharge Medication List Aspirin [Gerster Aspirin EC] 81 mg PO BID 04/29/19 [History] Atorvastatin Calcium [Lipitor] 10 mg PO DAILY 04/29/19 [History] Lisinopril 20 mg PO DAILY 04/29/19 [History] Metoprolol Tartrate [Lopressor] 12.5 mg PO BID 04/29/19 [History] Tamsulosin HCl [Flomax] 0.4 mg PO DAILY 04/29/19 [History] Clopidogrel [Plavix] 75 mg PO DAILY #30 tab 05/02/19 [Rx] Follow up Appointment(s)/Referral(s): Shawna Calderón MD [Primary Care Provider] - 1-2 days (PLEASE CALL ON [facility] TO MAKE FOLLOW UP APPOINTMENT) Jasmine Mckeon MD [STAFF PHYSICIAN] - 2 Weeks (PLEASE CALL FRIDAY TO MAKE FOLLOW UP APPOINTMENT) Nadine Gomez MD [STAFF PHYSICIAN] - 2 Weeks (PLEASE CALL ON FRIDAY TO MAKE FOLLOW UP APPOINTMENT) Patient Instructions/Handouts: Gastrointestinal Bleeding (DC) Activity/Diet/Wound Care/Special Instructions: DIET AND ACTIVITY TOLERATED REPORT ANY BLOOD IN URINE, STOOL OR VOMITING BLOOD. REPORT BLACK/TARRY STOOLS Discharge Disposition: HOME SELF-CARE
== END 2019-05-02 18:10 | disposition home or self-care (01) ==
LOC: EC 15:08 → INTOOBSV 15:55 → 2SICU 15:55 → 3SCARD 17:31 → UNDODISIN 05-01 12:55
PROVIDERS: ADMIT Internal Medicine; ATTEND Internal Medicine
DX: K29.01 Acute gastritis with bleeding (principal); D62 Acute posthemorrhagic anemia; K22.11 Ulcer of esophagus with bleeding; E11.9 Type 2 diabetes mellitus without complications; E78.5 Hyperlipidemia, unspecified; F17.200 Nicotine dependence, unspecified, uncomplicated; I10 Essential (primary) hypertension; I25.10 Atherosclerotic heart disease of native coronary artery without angina pectoris; K57.30 Diverticulosis of large intestine without perforation or abscess without bleeding; Z79.02 Long term (current) use of antithrombotics/antiplatelets; Z79.82 Long term (current) use of aspirin; Z79.899 Other long term (current) drug therapy; Z87.11 Personal history of peptic ulcer disease; Z95.5 Presence of coronary angioplasty implant and graft; Z88.0 Allergy status to penicillin
CPT/HCPCS: 96376; 96374; 36430; 99285; 36415; 93306; 86900; 86901; 88305 ×2; 80053; 80048; 85025 ×3; 86850; 86920; 45380; 43239; G0378 ×5; P9016; J2001 ×2; J2704 ×2; C9113 ×4; 93005

== ENCOUNTER 2019-07-13 08:00 | Observation (INO) | payer MEDICARE, OTHER ==
[2019-07-13] MEDS ORDERED: SODIUM CHLORIDE 0.9% 1,000 ML IV STA (08:51)
[2019-07-13] MEDS ORDERED: NALOXONE 0.4 MG/ML 1 ML VIAL IV PRN (08:51)
--- NOTE | 2019-07-13 08:51 | ED ---
General Adult HPI - General Chief complaint: Syncope Stated complaint: AMS Time Seen by Provider: 07/13/19 08:11 Source: EMS Mode of arrival: EMS Limitations: no limitations - History of Present Illness Initial comments: Dictation was produced using [employer] dictation software. please excuse any grammatical, word or spelling errors. Chief Complaint: Patient is a 69-year-old male is transferred from [facility] for higher level of care. History of Present Illness: She is a 69-year-old male who presents today via EMS from [facility]. Patient allegedly had an episode of syncope. He was discovered at home and found to be altered. Patient is an alcoholic. He was found in the bathroom at home after EMS was called. Patient does recall the events reports that he had some palpitations prior to passing out. He did admit to having multiple alcoholic beverages prior to the episode. 2:30 AM was when he was found. Girlfriend was the individual that contacted EMS. I [facility] he was found to have low blood pressure with a measurement of 50/30. She was also found to have hypoglycemia measured at 59. His IV dextrose. Patient was given Narcan with no improvement of mentation. He G showed QT prolongation. QTC measuring 509. He did receive a CT. Patient was axo 4 at [place] without any focal neurologic deficits. After receiving fluids patient's blood pressure improved. He did have labs performed showing bicarb of 15. Creatinine 2.1. Case was allegedly discussed with Dr. Romero and Dr. Mooney who both agreed with transferred to [facility]. Patient reports he feels fine after all the interventions report performed at the other hospital. He states he does feel slightly weak. The ROS documented in this emergency department record has been reviewed and confirmed by me. Those systems with pertinent positive or negative responses have been documented in the HPI. All other systems are other negative and/or noncontributory. PHYSICAL EXAM: General Impression: Alert and oriented x3, not in acute distress HEENT: Normocephalic atraumatic, extra-ocular movements intact, pupils equal and reactive to light bilaterally, mucous membranes moist. Cardiovascular: Heart regular rate and rhythm, S1&S2 audible, no murmurs, rubs or gallops Chest: Lungs clear to auscultation bilaterally, no rhonchi, no wheeze, no rales Abdomen: Bowel sounds present, abdomen soft, non-tender, non-distended, no organomegaly Musculoskeletal: Pulses present and equal in all extremities, no peripheral edema Motor: no focal deficits noted Neurological: CN II-XII grossly intact, no focal motor or sensory deficits noted, no extremity ataxia Skin: Intact with no visualized rashes Psych: Normal affect and mood ED course: 69-year-old male transferred from [facility] for syncope on arrival are within acceptable limits. Physical examination is benign. Transient documentation was reviewed in its entirety. Patient did have elevated BUN and creatinine concerning for acute kidney injury. Patient had labs done last April with normal renal markers. Physically some component of prerenal azotemia acute kidney injury. EKG was reperformed. There is no evidence of prolonged QT. Patient is mentating normally. He is not showing any signs of focal neurologic deficit. There is concern that perhaps patient had a cardiac cause of syncope given that he complained of palpitations prior to the episode. Discussed patient case with Dr. Easton who is willing to accept patients care. Cardiology will consulted. I do not believe patient requires neurology consultation given that he has no focal neurologic deficits. Clinical presentation could be secondary to seizure however there is no history of tonic- clonic activity. There was perhaps may be some post ictal confusion however patient was most likely altered because of some EtOH intoxication. EKG interpretation: Ventricular rate 75, normal sinus rhythm,. 186, QRS 94, QTC 464. No ID prolongation, no QTC prolongation, no ST or T-wave changes noted. Overall, this EKG is unremarkable - Related Data Home Medications Medication Instructions Recorded Confirmed Aspirin [Garrard Aspirin EC] 81 mg PO BID 04/29/19 04/29/19 Atorvastatin Calcium [Lipitor] 10 mg PO DAILY 04/29/19 04/29/19 Lisinopril 20 mg PO DAILY 04/29/19 04/29/19 Metoprolol Tartrate [Lopressor] 12.5 mg PO BID 04/29/19 04/29/19 Tamsulosin HCl [Flomax] 0.4 mg PO DAILY 04/29/19 04/29/19 Previous Rx's Medication Instructions Recorded Clopidogrel [Plavix] 75 mg PO DAILY #30 tab 05/02/19 Allergies Allergy/AdvReac Type Severity Reaction Status Date / Time Penicillins Allergy Unknown Verified 04/29/19 15:14 Childhood Review of Systems ROS Statement: Those systems with pertinent positive or pertinent negative responses have been documented in the HPI. ROS Other: All systems not noted in ROS Statement are negative. Past Medical History Past Medical History: Hypertension, Prostate Disorder History of Any Multi-Drug Resistant Organisms: None Reported Past Surgical History: Heart Catheterization With Stent Additional Past Surgical History / Comment(s): history of 3 stents. aprox 2 months ago. Past Psychological History: No Psychological Hx Reported Smoking Status: Current every day smoker Past Alcohol Use History: None Reported Past Drug Use History: None Reported General Exam Limitations: no limitations Course Vital Signs 07/13/19 07/13/19 08:02 08:11 Temperature 97.9 F 97.9 F Pulse Rate 76 76 Respiratory 18 18 Rate Blood Pressure 156/85 156/85 O2 Sat by Pulse 97 97 Oximetry Disposition Clinical Impression: Syncope Disposition: ADMITTED IP TO THIS HOSP Condition: Fair Referrals: Shawna Calderón MD [Primary Care Provider] - 1-2 days Decision Time: 08:51
[2019-07-13 09:15] LABS: Glucose,Whole Blood 79 mg/dL (75-99)
[2019-07-13] MEDS: PANTOPRAZOLE 40 MG/10 ML VIAL IVP SCH ×2 (12:42→20:37)
[2019-07-13] MEDS: SODIUM CHLORIDE 0.9% 1,000 ML IV SCH ×2 (12:43→20:36)
--- NOTE | 2019-07-13 14:06 | P.HPIM ---
History of Present Illness Patient is a 69-year-old male with a presented to [facility] ER with complaints of a altered mental status and concerns of stroke. Although patient was drinking alcohol to few shots of alcohol before he went to bed shortly he woke up from bed to urinate and had a syncopal episode and was confused after that. His confusion is probably related to his alcohol is him a she does not doesn't have any weakness tingling and numbness patient is alert oriented 3 at this time. Patient is able to provide good history to me. Patient baseline creatinine is normal it's elevated to 2. Patient denied any chest pain EKG was obtained at the other facility which showed low old age EKG nonspecific ST-T wave changes EKG here is within normal limits. Patient was started on IV fluids. Patient had a recent echo cardiac exam because of which I'm not getting a repeat one as I believe his syncope is mainly due to alcohol. She denied loss of bowel or bladder continence, tongue biting or frothing. Patient denied any fever chills dysuria. Review of Systems REVIEW OF SYSTEMS: CONSTITUTIONAL: No fever, no malaise, no fatigue. HEENT: No recent visual problems or hearing problems. Denied any sore throat. CARDIOVASCULAR: No chest pain, orthopnea, PND, no palpitations. PULMONARY: No shortness of breath, no cough, no hemoptysis. GASTROINTESTINAL: No diarrhea, no nausea, no vomiting, no abdominal pain. NEUROLOGICAL: No headaches, no weakness, no numbness. HEMATOLOGICAL: Denies any bleeding or petechiae. GENITOURINARY: Denies any burning micturition, frequency, or urgency. MUSCULOSKELETAL/RHEUMATOLOGICAL: Denies any joint pain, swelling, or any muscle pain. ENDOCRINE: Denies any polyuria or polydipsia. The rest of the 14-point review of systems is negative. Past Medical History Past Medical History: Coronary Artery Disease (CAD), Diabetes Mellitus, GERD /Reflux, GI Bleed, Hyperlipidemia, Hypertension, Osteoarthritis (OA), Pneumonia, Prostate Disorder, Renal Disease, Syncope Additional Past Medical History / Comment(s): Lower GI bleed with anemia/transfusion, nephrolithiasis-passed stones on his own, BPH, colitis, chronic back pain, "borderline diabetes". History of Any Multi-Drug Resistant Organisms: None Reported Past Surgical History: Heart Catheterization With Stent Additional Past Surgical History / Comment(s): 04/2019 EGD/colonoscopy, PCI with 3 stents per pt in February, at a hospital in [place], [place]. Date of Last Stent Placement:: 2018 Past Psychological History: No Psychological Hx Reported Additional Psychological History / Comment(s): Pt resides with his significant other. He uses no assistive device. He does not drive, his significant other drives. Smoking Status: Current every day smoker Past Alcohol Use History: None Reported Additional Past Alcohol Use History / Comment(s): Pt started smoking in 1964 and is between a /-12 ppd smoker. Past Drug Use History: None Reported - Past Family History Father History Unknown: Yes Additional Family Medical History / Comment(s): Pt was adopted. Mother History Unknown: Yes Additional Family Medical History / Comment(s): Pt was adopted. Medications and Allergies Home Medications Medication Instructions Recorded Confirmed Type Aspirin [Gordon Aspirin EC] 81 mg PO BID 04/29/19 07/13/19 History Atorvastatin Calcium [Lipitor] 10 mg PO DAILY 04/29/19 07/13/19 History Lisinopril 20 mg PO DAILY 04/29/19 07/13/19 History Metoprolol Tartrate [Lopressor] 12.5 mg PO BID 04/29/19 07/13/19 History Tamsulosin HCl [Flomax] 0.4 mg PO DAILY 04/29/19 07/13/19 History Clopidogrel [Plavix] 75 mg PO DAILY #30 tab 05/02/19 07/13/19 Rx Allergies Allergy/AdvReac Type Severity Reaction Status Date / Time Penicillins Allergy Unknown Verified 07/13/19 09:10 Childhood Physical Exam Vitals: Vital Signs Temp Pulse Resp BP Pulse Ox 07/13/19 09:15 84 18 150/88 98 07/13/19 08:11 97.9 F 76 18 156/85 97 07/13/19 08:02 97.9 F 76 18 156/85 97 Intake and Output 07/12/19 07/13/19 07/13/19 22:59 06:59 14:59 Other: Weight 81.647 kg PHYSICAL EXAMINATION: GENERAL: The patient is alert and oriented x3, not in any acute distress. Well developed, well nourished. HEENT: Pupils are round and equally reacting to light. EOMI. No scleral icterus. No conjunctival pallor. Normocephalic, atraumatic. No pharyngeal erythema. No thyromegaly. CARDIOVASCULAR: S1 and S2 present. No murmurs, rubs, or gallops. PULMONARY: Chest is clear to auscultation, no wheezing or crackles. ABDOMEN: Soft, nontender, nondistended, normoactive bowel sounds. No palpable organomegaly. MUSCULOSKELETAL: No joint swelling or deformity. EXTREMITIES: No cyanosis, clubbing, or pedal edema. NEUROLOGICAL: Gross neurological examination did not reveal any focal deficits. SKIN: No rashes. Thrombosis Risk Factor Assmnt - Choose All That Apply Any of the Below Risk Factors Present?: Yes Other Risk Factors: Yes Each Risk Factor Represents 2 Points: Age 61-74 years Other congenital or acquired thrombophilia - If yes, enter type in comment: No Thrombosis Risk Factor Assessment Total Risk Factor Score: 2 Thrombosis Risk Factor Assessment Level: Low Risk Assessment and Plan Plan: -Syncope: Secondary to excess alcohol use dehydration intravascularly depletion patient was started on IV fluids is made of elevated blood pressure I'll still hold off any symptoms because of acute renal failure. Clinical suspicion of seizure is low is evidence of several vascular accident although not to Carotid Doppler -Alcohol ABUSE: Counseling was provided patient denies using alcohol on regular basis but will monitor for any withdrawals. Which I don't expect as he doesn't drink alcohol on regular basis -Hypertension -Gastroesophageal reflux disease -Coronary disease -Acute renal failure secondary to dehydration as mentioned above IV fluids as mentioned above -Nicotine abuse: Counseling was provided -Benign prostatic hypertrophy
--- NOTE | 2019-07-13 15:04 | US ---
EXAMINATION TYPE: US carotid duplex BILAT DATE OF EXAM: 07/13/2019 COMPARISON: NONE CLINICAL HISTORY: CVA. EXAM MEASUREMENTS: RIGHT: Peak Systolic Velocity (PSV) cm/sec ----- Right CCA: 107.3 ----- Right ICA: 132.3 ----- Right ECA: 132.3 ICA/CCA ratio: 1.2 RIGHT: End Diastole cm/sec ----- Right CCA: 19.2 ----- Right ICA: 35.3 ----- Right ECA: 16.6 LEFT: Peak Systolic Velocity (PSV) cm/sec ----- Left CCA: 118.9 ----- Left ICA: 91.2 ----- Left ECA: 97.8 ICA/CCA ratio: 0.8 LEFT: End Diastole cm/sec ----- Left CCA: 18.7 ----- Left ICA: 25.9 ----- Left ECA: 8.6 VERTEBRALS (direction of flow): Right Vertebral: Antegrade Left Vertebral: Antegrade Rhythm: Normal Moderate atherosclerotic changes with no significant velocity increases. Technically difficult due to patient inability to hold still. IMPRESSION: Moderate degree of grayscale atheromatous plaquing. Although velocities are slightly ar vated in the right internal and external carotid artery the internal carotid artery to common carotid artery ratio is within normal limits and criteria for hemodynamically significant stenosis is not me t bilaterally. Criteria for Assigning % of Stenosis / Diameter reduction (Estimation based on the indirect measurements of the internal carotid artery velocities (ICA PSV). 1. Normal (no stenosis)=ICA PSV < 125 cm/s: ratio < 2.0: ICA EDV<40 cm/s. 2. Less than 50% stenosis=ICA PSV < 125 cm/s: ratio < 2.0: ICA EDV<40 cm/s. 3. 50 to 69% stenosis=ICA PSV of 125 to 230 cm/s: ration 2.0 ? 4.0: ICA EDV 40-100 cm/s. 4. Greater than 70% stenosis to near occlusion= ICA PSV > 230 cm/s: ratio > 4.0: ICA EDV > 100 cm/s. 5. Near occlusion= ICA PSV velocities may be low or undetectable: variable ratio and ICA EDV. 6. Total occlusion=unable to detect flow.
[2019-07-13] MEDS: METOPROLOL TARTRATE 12.5 MG TAB PO SCH (20:37)
[2019-07-13] MEDS: ASPIRIN 81 MG PO SCH (20:37)
[2019-07-13 22:00] VITALS: RESP 20
[2019-07-14 05:08] VITALS: BP 162/77; PULSE 58; TEMP 98.2
[2019-07-14] MEDS: SODIUM CHLORIDE 0.9% 1,000 ML IV SCH ×2 (05:24→10:17)
[2019-07-14] MEDS: METOPROLOL TARTRATE 12.5 MG TAB PO SCH (07:10)
[2019-07-14] MEDS: PANTOPRAZOLE 40 MG/10 ML VIAL IVP SCH (07:10)
[2019-07-14] MEDS: ASPIRIN 81 MG PO SCH (07:10)
--- NOTE | 2019-07-14 07:31 | P.CRDCN ---
History of Present Illness History of present illness: HISTORY OF PRESENTING ILLNESS This is a pleasant -year-old male past medical history significant for coronary artery disease s/p PCI with 3 stents placed in [place] sometime in 2019, chronic alcohol abuse, diabetes mellitus, hypertension and dyslipidemia. We have been asked to see in consultation for syncope. The patient is seen and examined resting comfortably lying flat in bed in no acute distress. He does not recall the events surrounding his hospitalization. According to the notes in the nursing staff the patient was found to be somewhat unresponsive in his bathroom. EMS noted a blood pressure of 50/30 and a blood sugar of 59. Apparently the patient had been drinking whiskey the night before. He was transferred here from [facility]. EKG on arrival reveals sinus mechanism with mildly prolonged QTC. Telemetry tracings have been unremarkable. Laboratory data reviewed from [facility] is unremarkable aside from creatinine of 2.1. Currently maintained on aspirin, atorvastatin, Plavix, lisinopril and Lopressor. Recent echocardiogram obtained in April 2019 reveals preserved LV systolic function with ejection fraction 50-55% with apical inferior and septal hypokinesia noted. The patient denies ever having had symptoms of chest pain, shortness of breath, dizziness or palpitations. REVIEW OF SYSTEMS At the time of my exam: CONSTITUTIONAL: Denies fever or chills. CARDIOVASCULAR: Denies chest pain, shortness of breath, orthopnea, PND or palpitations. RESPIRATORY: Denies cough. GASTROINTESTINAL: Denies abdominal pain, diarrhea, constipation, nausea or vomiting. MUSCULOSKELETAL: Denies myalgias. NEUROLOGIC: Denies numbness, tingling or weakness. ENDOCRINE: Denies fatigue, weight change, polydipsia or polyurina. GENITOURINARY: Denies burning, hematuria or urgency with micturation. HEMATOLOGIC: Denies history of anemia or bleeding. PHYSICAL EXAMINATION Blood pressure 150/88 heart rate 84 afebrile and maintaining oxygen saturation on room air. CONSTITUTIONAL: No apparent distress. HEENT: Head is normocephalic. Pupils are equal, round. Sclerae anicteric. Mucous membranes of the mouth are moist. No JVD. No carotid bruit. CHEST EXAMINATION: Lungs are clear to auscultation. No chest wall tenderness is noted on palpation or with deep breathing. HEART EXAMINATION: Regular rate and rhythm. S1, S2 heard. No murmurs, gallops or rub. ABDOMEN: Soft, nontender. Positive bowel sounds. EXTREMITIES: 2+ peripheral pulses, no lower extremity edema and no calf tenderness. NEUROLOGIC EXAMINATION: Patient is awake, alert and oriented x3. ASSESSMENT Possible syncopal episode, unclear events surrounding situation. The patient was also intoxicated at the time. Hypotension History of coronary artery disease, exact details unavailable Hypertension Dyslipidemia Diabetes mellitus Chronic alcohol abuse. PLAN Clinically stable from a cardiac perspective. Syncopal episode and confusion likely related to alcohol intoxication and hypotension. Recommend complete alcohol cessation. Follow-up with his primary web feeder upon discharge. Thank you kindly for this consultation. Nurse Practitioner note has been reviewed, I agree with a documented findings and plan of care. Patient was seen and examined. Past Medical History Past Medical History: Coronary Artery Disease (CAD), Diabetes Mellitus, GERD/Reflux, GI Bleed, Hyperlipidemia, Hypertension, Osteoarthritis (OA), Pneumonia, Prostate Disorder, Renal Disease, Syncope Additional Past Medical History / Comment(s): Lower GI bleed with anemia/transfusion, nephrolithiasis-passed stones on his own, BPH, colitis, chronic back pain, "borderline diabetes". History of Any Multi-Drug Resistant Organisms: None Reported Past Surgical History: Heart Catheterization With Stent Additional Past Surgical History / Comment(s): 04/2019 EGD/colonoscopy, PCI with 3 stents per pt in February, at a hospital in [place], [place]. Date of Last Stent Placement:: 2018 Past Psychological History: No Psychological Hx Reported Additional Psychological History / Comment(s): Pt resides with his significant other. He uses no assistive device. He does not drive, his significant other drives. Smoking Status: Current every day smoker Past Alcohol Use History: None Reported Additional Past Alcohol Use History / Comment(s): Pt started smoking in 1965 and is between a 1/4-1/2 ppd smoker. Past Drug Use History: None Reported - Past Family History Father History Unknown: Yes Additional Family Medical History / Comment(s): Pt was adopted. Mother History Unknown: Yes Additional Family Medical History / Comment(s): Pt was adopted. Medications and Allergies Home Medications Medication Instructions Recorded Confirmed Type Aspirin [[place] Aspirin EC] 81 mg PO BID 04/29/19 07/13/19 History Atorvastatin Calcium [Lipitor] 10 mg PO DAILY 04/29/19 07/13/19 History Lisinopril 20 mg PO DAILY 04/29/19 07/13/19 History Metoprolol Tartrate [Lopressor] 12.5 mg PO BID 04/29/19 07/13/19 History Tamsulosin HCl [Flomax] 0.4 mg PO DAILY 04/29/19 07/13/19 History Clopidogrel [Plavix] 75 mg PO DAILY #30 tab 05/02/19 07/13/19 Rx Allergies Allergy/AdvReac Type Severity Reaction Status Date / Time Penicillins Allergy Unknown Verified 07/13/19 09:10 Childhood Physical Exam Vitals: Vital Signs Temp Pulse Pulse Resp BP BP Pulse Ox 07/13/19 15:00 97.6 F 82 17 122/67 97 07/13/19 09:15 84 18 150/88 98 07/13/19 08:11 97.9 F 76 18 156/85 97 07/13/19 08:02 97.9 F 76 18 156/85 97 Intake and Output 07/13/19 07/13/19 07/13/19 06:59 14:59 22:59 Other: Weight 81.647 kg Results Current Medications Generic Name Dose Route Start Last Admin Trade Name Freq PRN Reason Stop Dose Admin Aspirin 81 mg 07/13/19 21:00 Aspirin PO BID [facility] Atorvastatin Calcium 10 mg 07/14/19 09:00 Lipitor PO DAILY [facility] Clopidogrel Bisulfate 75 mg 07/14/19 09:00 Plavix PO DAILY [facility] Enoxaparin Sodium 40 mg 07/14/19 09:00 Lovenox SQ DAILY [facility] Sodium Chloride 1,000 mls @ 125 mls/hr 07/13/19 12:30 07/13/19 12:43 Saline 0.9% IV 125 mls/hr .Q8H PRASANNA Administration Metoprolol Tartrate 12.5 mg 07/13/19 21:00 Lopressor PO BID PRASANNA Naloxone HCl 0.2 mg 07/13/19 08:51 Narcan IV Q2M PRN Opioid Reversal Pantoprazole Sodium 40 mg 07/13/19 12:30 07/13/19 12:42 Protonix IVP 40 mg BID PRASANNA Administration Tamsulosin HCl 0.4 mg 07/14/19 09:00 Flomax PO DAILY PRASANNA Intake and Output 07/13/19 07/13/19 07/13/19 06:59 14:59 22:59 Other: Weight 81.647 kg Patient Weight 07/14/19 06:59 Weight 81.647 kg
[2019-07-14] MEDS ORDERED: ATORVASTATIN 10 MG TAB PO SCH (09:00)
[2019-07-14] MEDS ORDERED: ENOXAPARIN 40 MG/0.4 ML SYRINGE SQ SCH (09:00)
[2019-07-14] MEDS ORDERED: LISINOPRIL 20 MG TAB PO SCH (09:00)
[2019-07-14] MEDS ORDERED: CLOPIDOGREL 75 MG TAB PO SCH (09:00)
[2019-07-14] MEDS ORDERED: TAMSULOSIN 0.4 MG CAP.ER.24H PO SCH (09:00)
[2019-07-14 09:16] LABS: African American GFR (CKD) >90 (>60 ml/min/1.73 sqM); Anion Gap 6 mmol/L; Blood Urea Nitrogen 19 mg/dL (9-20); Calcium 8.1 mg/dL (8.4-10.2); Carbon Dioxide 22 mmol/L (22-30); Chloride 110 mmol/L (98-107); Glucose 178 mg/dL (74-99); Non-African American GFR(CKD) >90 (>60 ml/min/1.73 sqM); Potassium 4.3 mmol/L (3.5-5.1); Sodium 138 mmol/L (137-145)
--- NOTE | 2019-07-14 15:40 | P.DS ---
Providers Date of admission: 07/13/19 08:51 Expected date of discharge: 07/14/19 Attending physician: Erica Easton Consults: 07/13/19 08:52 Consult Physician Routine Consulting Provider: Kleber Cárdenas Consult Reason/Comments: syncope Do you want consulting provider notified?: Yes [facility] Course: Final diagnosis -Syncope: Secondary to excess alcohol use dehydration intravascularly depletion -Alcohol ABUSE -Hypertension -Gastroesophageal reflux disease -Coronary artery disease -Acute renal failure secondary to dehydration -Nicotine abuse -Benign prostatic hypertrophy Discharge disposition Patient is being discharged in a stable condition with guarded prognosis to home and will follow-up with Dr. Calderón in the outpatient setting upon discharge. Total time taken is 35 minutes. History of present illness Patient is a 69-year-old male with a presented to [facility] ER with complaints of a altered mental status and concerns of stroke. Although patient was drinking alcohol to few shots of alcohol before he went to bed shortly he woke up from bed to urinate and had a syncopal episode and was confused after that. His confusion is probably related to his alcohol is him a she does not doesn't have any weakness tingling and numbness patient is alert oriented 3 at this time. Patient is able to provide good history to me. Patient baseline creatinine is normal it's elevated to 2. Patient denied any chest pain EKG was obtained at the other facility which showed low old age EKG nonspecific ST-T wave changes EKG here is within normal limits. Patient was started on IV fluids. Patient had a recent echo cardiac exam because of which I'm not getting a repeat one as I believe his syncope is mainly due to alcohol. She denied loss of bowel or bladder continence, tongue biting or frothing. Patient denied any fever chills dysuria. 07/14/2019 Patient is seen in follow-up today and is feeling much better. Patient was seen and evaluated by cardiology recommending continuing current medications and following up with cardiology in the outpatient setting as needed. Patient's creatinine improved today with normal saline and patient would like to go home today. Discussed with the patient at length about cutting down his alcohol consumption. No reports of chest pain, shortness of breath, or palpitations. Patient is afebrile. No reports of nausea or vomiting and patient is tolerating diet. On exam vital signs are stable. Temp is 98.2 F, pulse is 58, respirations are 20, blood pressure is 162/77, oxygen saturation is 97 % on room air. Cardio S1, S2 are present. Respiratory shows clear to auscultation with no wheezing or rhonchi noted. Abdomen is soft, and nontender. Nervous system shows no focal deficits. Please refer to medication reconciliation sheet for a list of medications. Patient Condition at Discharge: Stable Plan - Discharge Summary Discharge Rx Participant: No New Discharge Prescriptions: Continue Tamsulosin HCl [Flomax] 0.4 mg PO DAILY Metoprolol Tartrate [Lopressor] 12.5 mg PO BID Lisinopril 20 mg PO DAILY Atorvastatin Calcium [Lipitor] 10 mg PO DAILY Aspirin [[place] Aspirin EC] 81 mg PO BID Clopidogrel [Plavix] 75 mg PO DAILY #30 tab Discharge Medication List Aspirin [[place] Aspirin EC] 81 mg PO BID 04/29/19 [History] Atorvastatin Calcium [Lipitor] 10 mg PO DAILY 04/29/19 [History] Lisinopril 20 mg PO DAILY 04/29/19 [History] Metoprolol Tartrate [Lopressor] 12.5 mg PO BID 04/29/19 [History] Tamsulosin HCl [Flomax] 0.4 mg PO DAILY 04/29/19 [History] Clopidogrel [Plavix] 75 mg PO DAILY #30 tab 05/02/19 [Rx] Follow up Appointment(s)/Referral(s): Shawna Calderón MD [Primary Care Provider] - 1-2 days (PT would like to make appointment. Please call and make Hospital Follow Up appointment when D/C) Discharge Disposition: HOME SELF-CARE
== END 2019-07-14 13:23 | disposition home or self-care (01) ==
LOC: EC 08:00 → INTOOBSV 08:51 → 6NMEDSUR 08:51 → UNDODISIN 07-14 13:23
PROVIDERS: ADMIT Internal Medicine; ATTEND Internal Medicine
DX: R55 Syncope and collapse (principal); E86.0 Dehydration; F10.129 Alcohol abuse with intoxication, unspecified; I10 Essential (primary) hypertension; K21.9 Gastro-esophageal reflux disease without esophagitis; I25.10 Atherosclerotic heart disease of native coronary artery without angina pectoris; N17.9 Acute kidney failure, unspecified; N40.0 Benign prostatic hyperplasia without lower urinary tract symptoms; M19.90 Unspecified osteoarthritis, unspecified site; G89.29 Other chronic pain; M54.9 Dorsalgia, unspecified; E78.5 Hyperlipidemia, unspecified; E11.649 Type 2 diabetes mellitus with hypoglycemia without coma; I95.9 Hypotension, unspecified; Z95.5 Presence of coronary angioplasty implant and graft; F17.210 Nicotine dependence, cigarettes, uncomplicated; Z79.82 Long term (current) use of aspirin; Z79.899 Other long term (current) drug therapy; Z79.02 Long term (current) use of antithrombotics/antiplatelets; Z88.0 Allergy status to penicillin; Z87.442 Personal history of urinary calculi; Z86.2 Personal history of diseases of the blood and blood-forming organs and certain disorders involving the immune mechanism; Z87.01 Personal history of pneumonia (recurrent); Z87.19 Personal history of other diseases of the digestive system
CPT/HCPCS: 96376 ×2; 96361 ×3; 96374; 99285; 36415; 93005; 80048; 93880; G0378 ×2; C9113 ×2